=== PATIENT | male | born 1980 | race Caucasian/White ===

== ENCOUNTER 2019-10-20 08:44 | Day surgery (SDC) | payer OTHER ==
[2019-10-19 11:46] VITALS: BMI 24.4
[2019-10-20] MEDS ORDERED: Heparin 10,000 UNITS/1 ML VIAL ONE (08:49)
[2019-10-20] MEDS ORDERED: Lidocaine 1% (PF) 30 ML VIAL ONE (08:49)
[2019-10-20] MEDS ORDERED: Fentanyl 100 MCG/2 ML VIAL ONE ×3 (09:42→11:26)
[2019-10-20 09:44] LABS: #Basophils 0.1 thou/uL (0.0-0.2); #Eosinphils 0.1 thou/uL (0.0-0.7); #Lymphocytes 1.8 thou/uL (1.20-3.40); #Monocytes 0.7 thou/uL (0.11-0.59); #Neutrophils 5.5 thou/uL (1.40-6.50); %Basophils 0.6 % (0.0-1.0); %Eosinophils 1.8 % (0.0-10.0); %Lymphocytes 21.6 % (21.0-51.0); %Monocytes 8.7 % (0.0-10.0); %Neutrophils 67.3 % (42.0-75.0); Hemoglobin 15.3 g/dL (14.0-18.0); Mean Corpuscular HGB CONC 34.5 g/dL (32.0-36.0); Mean Corpuscular Hemoglobin 31.4 pg (27.0-31.0); Mean Corpuscular Volume 91.1 fL (78.0-98.0); Mean Platelet Volume 7.5 fL (7.4-10.4); Platelet Count 195 thou/uL (130-400); RBC Distribution Width 11.1 % (11.5-14.5); Red Blood Cell (RBC) Count 4.88 mill/uL (4.70-6.10); White Blood Cell (WBC) Count 8.2 thou/uL (4.8-10.8)
[2019-10-20 09:51] LABS: PTT 30.8 SEC (22.9-36.1); Prothrombin Time 13.4 SEC (12.0-14.7)
[2019-10-20 09:56] LABS: Anion Gap 10 mmol/L (10-20); BUN (Urea Nitrogen) 15 mg/dL (8.9-20.6); Calc. Creatinine Clearance 102 mL/min (70-130); Calcium 9.4 mg/dL (7.8-10.44); Carbon Dioxide 29 mmol/L (22-29); Chloride 104 mmol/L (98-107); Estimated GFR-MDRD 75; Glucose 95 mg/dL (70-105); Potassium 4.2 mmol/L (3.5-5.1); Sodium 139 mmol/L (136-145)
--- NOTE | 2019-10-20 10:45 | PRG ---
DATE OF SERVICE: 10/20/2019 Mr. Abdalla is a 39-year-old gentleman known to Dr. 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 There are plans to treat this surgically in the future. Dr. Soares asked that I meet with Mr. Abdalla to pursue cerebral angiography due to further define the vasculature around this malformation if present. I met with Mr. Abdalla this morning and discuss with him the procedure. I discussed also risks, benefits, and alternatives. He has provided consent for the procedure. Job ID: [id number]
[2019-10-20] MEDS ORDERED: Iopamidol 370 76% 50 ML VIAL FS ONE (13:16)
--- NOTE | 2019-11-01 22:14 | CCL ---
DATE OF PROCEDURE: 10/30/19 SURGEON: Agustin Osborn M.D. FELLMONGERY WORKER: None. INDICATION: Rule out AVM. DIAGNOSIS: History of AVM. PROCEDURE: Digital subtraction angiography. ANESTHESIA: Local. TECHNIQUE: The patient is brought to the angiogram suite and placed on the table in the supine position. Both gr oins were prepped and draped in the usual sterile fashion. 1% lidocaine was used to inject the right groin. A 5 [place] micropuncture set was used to gain access to the right common femoral artery. Using a Seldinger technique, the needle was removed and a 5 [place] sheath was placed. An 5 [place] Translimitt ic catheter was passed into the aortic arch where the right internal carotid artery was selectively c atheterized. An AP and lateral angiogram was then performed. All catheters were then removed. Hemosta sis was maintained throughout. Hemostasis was maintained with manual compression. The procedure came to an end without known complication. IMPRESSION: The patient underwent successful digital subtraction angiography. Angiography was performed of the [facility] internal carotid artery and reveals no evidence for AVM or other malformation.
== END 2019-10-20 13:55 | disposition home or self-care (01) ==
LOC: CCL 08:44
PROVIDERS: ATTEND Neurological Surgery
PROC: B30 Imaging, Upper Arteries, Plain Radiography (ICD-10-PCS; principal; 2019-10-20)
DX: Q28.2 Arteriovenous malformation of cerebral vessels (principal); Z79.82 Long term (current) use of aspirin; Z87.891 Personal history of nicotine dependence
CPT/HCPCS: 36217; 80048; 85025; 85610; 85730; J1644; J2001; J3010; Q9967

== ENCOUNTER 2020-01-31 07:11 | Outpatient (CLI) | payer OTHER ==
[2020-01-31 14:03] LABS: INR-International Normal Ratio 1.1; Prothrombin Time 14.2 sec (12.0-14.7)
[2020-01-31 14:16] LABS: Hemoglobin 15.2 g/dL (14.0-18.0); Mean Corpuscular HGB CONC 34.3 g/dL (32.0-36.0); Mean Corpuscular Hemoglobin 31.3 pg (27.0-31.0); Mean Corpuscular Volume 91.4 fL (78.0-98.0); Mean Platelet Volume 7.9 fL (7.4-10.4); Platelet Count 183 thou/uL (130-400); RBC Distribution Width 11.4 % (11.5-14.5); Red Blood Cell (RBC) Count 4.85 mill/uL (4.70-6.10); White Blood Cell (WBC) Count 4.9 thou/uL (4.8-10.8)
[2020-02-01 12:07] LABS: SARS-CoV-2 MS2 Positive; SARS-CoV-2 N Gene Positive; SARS-CoV-2 S Gene Positive; SARS-CoV-2 orf1ab Positive
== END 2020-01-31 07:12 | disposition home or self-care (01) ==
LOC: LABBT 07:11
PROVIDERS: ATTEND Neurological Surgery
DX: Z01.812 Encounter for preprocedural laboratory examination (principal); Z11.59 Encounter for screening for other viral diseases; Q04.9 Congenital malformation of brain, unspecified; D18.02 Hemangioma of intracranial structures
CPT/HCPCS: 85027; 85610; 85730; 87635; U0003

== ENCOUNTER 2020-01-31 09:33 | Outpatient (CLI) | payer OTHER ==
--- NOTE | 2020-01-31 11:23 | MRI ---
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 FINDINGS: There is an approximately 3.7 x 2.5 x 3.8 cm intra-axial mass centered in the right frontal dillon ra diata. Its inferior border is the superior edge of right basal ganglia. Its superior medial edge indents the anterior body of the right lateral ventricle and reaches the centrum semiovale the entire mass is surrounded by hemosiderin rim. The mass margins are very lobular. Internally, the mass consists of innumerable T2-hyperintense and T1 hyperintense small and tiny subunits by innu merable small septations with hemosiderin. Within the mass, there is enhancement of abnormal blood vessels representing a DVA (developmental venous anomaly, also known as venous angioma). No surroundi ng vasogenic edema is identified. In the right centrum semiovale, a distance of prostate 0.4 cm posterior to the posterior upper edge of the mass, there is a separate small 0.5 x 0.7 cm satellite l esion with similar signal characteristics. No enhancement is identified in this separate lesion. There is no mass effect or midline shift. No other foci of recent or remote hemorrhage in the suprate ntorial brain. Tiny punctate focus of minimal magnetic susceptibility artifact at midline posterior danilo may represent tiny calcification or perhaps minimal prior hemorrhage. No significant chronic isc hemic white matter changes. IMPRESSION: 1. 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 2. Associated developmental venous anomaly embedded within the giant cavernous malformation. 3. Very small satellite cavernous malformation a short distance posterior to the main mass.
== END 2020-01-31 09:34 | disposition home or self-care (01) ==
LOC: MRI 09:33
PROVIDERS: ATTEND Neurological Surgery
DX: D18.02 Hemangioma of intracranial structures (principal); Q28.3 Other malformations of cerebral vessels
CPT/HCPCS: 70553

== ENCOUNTER 2020-02-27 06:50 | Outpatient (CLI) | payer BC, OTHER ==
[2020-02-27 14:20] LABS: PTT 29.6 sec (22.9-36.1); Prothrombin Time 12.8 sec (12.0-14.7)
[2020-02-27 14:27] LABS: Hemoglobin 15.6 g/dL (14.0-18.0); Mean Corpuscular HGB CONC 34.1 g/dL (32.0-36.0); Mean Platelet Volume 7.8 fL (7.4-10.4); Platelet Count 246 thou/uL (130-400); RBC Distribution Width 11.8 % (11.5-14.5); Red Blood Cell (RBC) Count 5.04 mill/uL (4.70-6.10); White Blood Cell (WBC) Count 6.5 thou/uL (4.8-10.8)
[2020-02-28 13:33] LABS: SARS-CoV-2 MS2 Positive; SARS-CoV-2 N Gene Negative; SARS-CoV-2 S Gene Negative; SARS-CoV-2 orf1ab Negative
== END 2020-02-27 06:51 | disposition home or self-care (01) ==
LOC: LABBT 06:50
PROVIDERS: ATTEND Neurological Surgery
DX: Z01.812 Encounter for preprocedural laboratory examination (principal); Z11.59 Encounter for screening for other viral diseases; D18.02 Hemangioma of intracranial structures
CPT/HCPCS: 85027; 85610; 85730; 87635; U0003

== ENCOUNTER 2020-02-27 12:00 | Inpatient (IN) | payer BC, OTHER ==
--- NOTE | 2020-02-28 21:41 | HP ---
REASON FOR H AND P: Craniectomy and tumor resection on 03/01/2020, case # [id number]. CHIEF COMPLAINT: Migraines. HISTORY OF PRESENT ILLNESS: Mr. Abdalla is a 40-year-old male with a known cavernous malformation and a negative angiogram. MRI indicates that his right frontal lobe cavernoma has been enlarging. His headaches are still constant. He denies any new neurological deficits. REVIEW OF SYSTEMS: CONSTITUTIONAL: Denies fever, chills. EAR, NOSE AND THROAT: Denies change in vision or hearing. CARDIAC: Denies chest pain, shortness of breath, diaphoresis. PULMONARY: Denies shortness of breath, cough, hemoptysis. GI: Denies abdominal pain, nausea, vomiting, diarrhea, change in stool formation and consistency. : Denies trouble in urination, frequency of urination, bloody urine. SKIN: Denies skin rash bruising, bleeding, skin masses. MUSCULOSKELETAL: As per history of present illness. NEUROLOGIC: As per history of present illness. PSYCHOLOGIC: Denies anxiety, depression, or behavior changes. PAST MEDICAL HISTORY: Alcoholism/drug, cancer/tumor, headache/migraine. PAST SURGICAL HISTORY: ORIF right ankle in 2004, gamma knife 2006, appendectomy 2016. HOSPITALIZATIONS: Rhabdomyolysis in 2011, appendicitis 2016. FAMILY HISTORY: Father alive, hypertension, cancer. Mother . SOCIAL HISTORY: Tobacco use, former drug use. Former alcohol use. ALLERGIES: NO KNOWN DRUG ALLERGIES. PHYSICAL EXAMINATION: VITAL SIGNS: Height 5 feet 11 inches, weight 170 pounds. HEENT: Pupils are equal. Extraocular movements are intact. NECK: Soft, supple. No masses are noted. Range of motion is intact and nonpainful. NEUROLOGIC: Awake, alert, and oriented x3. Memory, attention, fund of knowledge normal. Cranial nerves grossly intact. EXTREMITIES: Upper extremity, he has good strength in his deltoids, biceps, triceps, wrist extension, finger extension, finger intrinsics. Sensation equal bilaterally. Lower extremities, he has good strength bilaterally in his iliopsoas, quadriceps, hamstrings, anterior tib, EHL, gastrocnemius. There is no area of dermatomal sensory loss. Toes are downgoing. GAIT AND STATION: Normal. IMAGING: MRI large cystic areas in inferior lateral margin and anterior medial margin of cavernoma. ASSESSMENT: Hemangioma of intracranial structures. PLAN: Right frontal craniotomy of cavernous malformation resection with BrainLAB protocol MRI. Preop labs CBC, PT/PTT, COVID 19 and anesthesia clearance. INFORMED CONSENT: We discussed the indications, risks, benefits, alternatives, and expected results from surgery. The risks discussed included, but were not limited to, infection, bleeding, CSF leak, brain damage, significant loss of neurological function, seizure, stroke, dependency for normal care, cardiopulmonary complications of anesthesia or . Long-term complications discussed included, but were not limited to reference and future surgeries. He understands the risks and is willing to proceed. Job ID: [id number] [facility]
[2020-03-01] MEDS ORDERED: Lidocaine 0.5%/Epinephrine 1:200,000 50 ml Vial ONE (06:11)
[2020-03-01] MEDS ORDERED: Bacitracin Zinc Ointment 30 gm TUBE ONE (06:11)
[2020-03-01] MEDS ORDERED: Thrombin 5000 UNITS/5 ML VIAL ONE ×2 (06:12→11:32)
[2020-03-01] MEDS ORDERED: Phenylephrine 10 MG/ML VIAL ONE (06:14)
[2020-03-01] MEDS ORDERED: Fentanyl 250 MCG/5 ML VIAL ONE (06:14)
[2020-03-01] MEDS ORDERED: niCARdipine 25 MG/10 ML VIAL ONE (06:14)
[2020-03-01] MEDS ORDERED: Famotidine/PF 20 mg/2ml Vial ONE (06:59)
[2020-03-01] MEDS ORDERED: Albumin 5% 500 ML ONE (09:02)
[2020-03-01] MEDS ORDERED: HYDROmorphone 2 MG/ML VIAL ONE (09:24)
[2020-03-01] MEDS ORDERED: Vecuronium 10 MG VIAL ONE ×2 (09:38→11:31)
[2020-03-01] MEDS ORDERED: Fentanyl 100 MCG/2 ML VIAL ONE ×2 (09:53→14:20)
[2020-03-01] MEDS ORDERED: PROPOFOL 200 MG/20 ML VIAL ONE (11:31)
[2020-03-01] MEDS ORDERED: Rocuronium Bromide 10 MG/ML (10ML VIAL) ONE (11:31)
[2020-03-01] MEDS ORDERED: Dexamethasone 20 MG/5 ML VIAL ONE (11:31)
[2020-03-01] MEDS ORDERED: Ondansetron PF 4 MG/2 ML Vial ONE (11:31)
[2020-03-01] MEDS ORDERED: Lidocaine 1% PF 5 ML VIAL ONE ×2 (11:31)
[2020-03-01] MEDS ORDERED: SUGAMMADEX SODIUM 200 MG/2 ML VIAL ONE (12:10)
[2020-03-01] MEDS ORDERED: hydrALAZINE 20 MG/ML VIAL SLOW IVP PRN ×2 (13:05→13:22)
[2020-03-01] MEDS ORDERED: Cepastat Lozenges 1 LOZ PO PRN (13:05)
[2020-03-01] MEDS ORDERED: Labetalol HCl 100 MG/20 ML VIAL SLOW IVP PRN ×2 (13:05→13:21)
[2020-03-01] MEDS ORDERED: Acetaminophen 325 MG TAB PO PRN (13:05)
[2020-03-01] MEDS ORDERED: Mag-Al 1200 mg/1200 mg/30 ML UDCUP PO PRN (13:05)
[2020-03-01] MEDS ORDERED: Promethazine 25 MG TAB PO PRN (13:05)
[2020-03-01] MEDS ORDERED: Acetaminophen/Codeine 30-300mg Tablet PO PRN (13:11)
[2020-03-01] MEDS ORDERED: Scopolamine 1.5 mg/72 hour Patch TD PRN (13:13)
[2020-03-01] MEDS ORDERED: Tamsulosin HCl 0.4 MG CAP PO PRN (13:13)
[2020-03-01] MEDS ORDERED: Promethazine HCl 25 MG/ML VIAL IM PRN (13:22)
[2020-03-01] MEDS ORDERED: HYDROmorphone 2 MG/ML VIAL SLOW IVP PRN (13:22)
[2020-03-01] MEDS ORDERED: Promethazine HCl 25 MG/ML VIAL SLOW IVP PRN (13:22)
[2020-03-01] MEDS ORDERED: Ondansetron HCl/PF 4 MG/2 ML Vial IVP PRN (13:22)
--- NOTE | 2020-03-01 14:22 | OP ---
DATE OF PROCEDURE: 03/01/2020 MANUFACTURING DEVELOPMENT ENGINEER: Ahsan Taylor PA-C PREOPERATIVE INDICATION: Prevent neurological deterioration. PREOPERATIVE DIAGNOSIS: Enlarging cavernous malformation, right hemisphere deep to the frontal lobe. POSTOPERATIVE DIAGNOSIS: Enlarging cavernous malformation, right hemisphere deep to the frontal lobe. PROCEDURE PERFORMED: BrainLAB assisted stereotactic right frontal craniotomy, resection of cavernous malformation. PREOPERATIVE MEDICATIONS: Ancef 2 g IV. DRAIN NUMBER: Zero. DRAIN TYPE: None. DESCRIPTION OF PROCEDURE: The patient was brought to the operating room. General endotracheal anesthesia was induced. The patient was positioned supine on the operating table with his right shoulder bumped. The head was immobilized with Licona pin overhead cleaner in the [place] attachment on the operating table. Using the preoperative BrainLAB protocol MRI scan and the BrainLAB surface matching techniques, we created 3 dimensional navigational space around the patient's head. We verified our registration with surface landmarks. We then planned a curvilinear incision starting at the root of the zygoma curving posteriorly behind the ear and then anteriorly towards the midline. Under our planned incision, we infused local anesthetic. The right side of the scalp was sterilely prepped and draped. We made our incision with a 10 blade knife. We controlled bleeding with bipolar and monopolar cautery. We folded the scalp flap forward leaving the temporalis muscle attached. Using the BrainLAB navigation wand, we planned out our trajectory to the cavernous malformation and we fashioned a craniotomy in a parasagittal fashion, where our trajectory would be in the center of the opening. We placed abby holes medially and one laterally. We removed dura from the undersurface of the skull with a [place] 3 dissector and then performed our craniotomy. The skull flap was taken out of the field and held on the back table. We irrigated with bacitracin irrigation. We opened the dura lateral to the midline and folded it towards the midline. We then brought the operating microscope into the field. Under microscopic magnification and using microsurgical techniques, we opened the superior frontal sulcus. Towards the depth of the sulcus, we then carried our dissection laterally towards the bottom of the middle frontal gyrus as this was the shortest distance to the cavernous malformation based on navigation. Once we encountered abnormal tissue, then we lined our trajectory with Surgicel and placed the self-retaining retractors with a Lu Halo system on the middle frontal gyrus. We developed the plane superior medial, lateral, anterior and posterior to the lesion and confirmed our dissection plane each time with the navigation system. We reduced the size of the lesion. Multiple popcorn-like cavities were present. When entered, this had some stagnant venous blood in it. We reduced the size of the lesions, so that we could work at its depth. Here, the lesion approached the frontal horn of the lateral ventricle. We entered the ventricular cavity superiorly. Laterally, the ependyma was just below the lesion. We the two successfully. A small opening in the superior portion of the ventricle was necessary with the lateral portion of the ventricle remained intact. We then dissected deep to the lesion. Here, multiple cystic structures were present and there were carefully emptied dissected around them extremely carefully and removed them. At the completion of our resection, 95% of the lesion was removed as a single unit and the remaining few sections that were deep were removed carefully and individually. There was a small amount of bleeding anterior at the depth of the resection cavity and this was controlled with a small pledget of Gelfoam. The remainder of the cavity had excellent hemostasis. We irrigated with bacitracin irrigation. We lined the resection cavity with Surgicel and reinforce the ventricular opening with another layer of Surgicel ensuring that it was large enough that would not enter the ventricular system. We then reapproximated the dura in an interrupted fashion. We irrigated once again with bacitracin irrigation. We left Surgicel over the dura. The skull flap was brought into the field and 3 abby hole covers were attached to the flap. These were used to fix the bone placement that was returned to the patient's pilot station skull. We removed the operating microscope and then we closed the scalp in anatomical layers. We applied sterile dressings. This was a clean case, no contamination. Job ID: [id number] [facility]
[2020-03-01] MEDS: Fentanyl 100 MCG/2 ML VIAL SLOW IVP PRN ×2 (15:45→21:49)
[2020-03-01] MEDS: Ondansetron PF 4 MG/2 ML Vial IVP PRN ×2 (15:45→21:49)
[2020-03-01] MEDS: CEFAZOLIN 2 GM in Premix Bag 1 BAG IVPB SCH ×2 (15:46→21:21)
[2020-03-01] MEDS: Sodium Chloride 0.9% 1,000 ML IV SCH (16:10)
[2020-03-01 16:26] VITALS: BMI 26.7
[2020-03-01] MEDS: Morphine 2 MG/ML VIAL SLOW IVP PRN ×3 (16:51→20:10)
[2020-03-01] MEDS: Promethazine HCl 25 MG/ML VIAL SLOW IVP PRN (18:40)
--- NOTE | 2020-03-01 18:49 | CON ---
DATE OF CONSULTATION: HISTORY OF PRESENT ILLNESS: Alcides Abdalla is a 40-year-old gentleman, who was admitted to the hospital with elective craniotomy and resection of a large right-sided cavernous hemangioma or at least a cavernous malformation. He had a CT angiogram several months ago, which did not show any AVM. He is postop, consulted by Neurosurgery since he is going to the ICU. There was some concern of some weakness on his left side. PAST MEDICAL HISTORY: Otherwise, pertinent for previous migraine headaches. PAST SURGICAL HISTORY: Previous surgeries, ankle surgery and hernia surgery. SOCIAL HISTORY: Previous history of alcohol and tobacco abuse. Substance abuse per history. ALLERGIES: NONE. HOME MEDICINE: 1. Elavil 50. 2. Tylenol. REVIEW OF SYSTEMS: Unremarkable. PHYSICAL EXAMINATION: VITAL SIGNS: His saturations are . Blood pressure on the A-line 130/80, pulse , and respirations 18. CHEST: No wheezing. No crackles. CARDIAC: Normal S1 and S2. No gallops. ABDOMEN: No masses. NEUROLOGIC: Basically, he is awake, was somewhat lethargic. LABORATORY DATA: His white count 6000 and H and H are stable. Chemistry profile is normal. ASSESSMENT AND PLAN: Status post craniotomy as outlined by Neurosurgery, Dr. Soares. We will observe the patient in the ICU. Supportive care and PT. He was started on empiric Keppra per Neurosurgery and antibiotics. Consultation note, 70 minutes, 50% direct patient care. Job ID: [id number]
[2020-03-01] MEDS: levETIRAcetam 500 MG TAB PO SCH ×2 (20:10→20:53)
[2020-03-01] MEDS: Amitriptyline HCl 25 MG TAB PO SCH (20:10)
[2020-03-01] MEDS ORDERED: Phenylephrine 10 MG in Sodium Chloride 0.9% 250 ML 250 ML IVPB PRN (21:05)
[2020-03-01] MEDS ORDERED: Dexamethasone 2 MG in Sodium Chloride 0.9% 50 ML IVPB SCH (23:59)
[2020-03-02] MEDS: Fentanyl 100 MCG/2 ML VIAL SLOW IVP PRN ×7 (00:04→23:02)
[2020-03-02] MEDS: Dexamethasone 4 mg/ml Vial SLOW IVP SCH ×5 (00:05→23:01)
[2020-03-02] MEDS: Sodium Chloride 0.9% 1,000 ML IV SCH ×3 (00:05→22:03)
[2020-03-02] MEDS: Morphine 2 MG/ML VIAL SLOW IVP PRN ×7 (01:01→21:56)
[2020-03-02] MEDS: Promethazine HCl 25 MG/ML VIAL SLOW IVP PRN ×3 (01:01→20:03)
[2020-03-02] MEDS: Ondansetron PF 4 MG/2 ML Vial IVP PRN ×3 (04:23→22:44)
[2020-03-02] MEDS: levETIRAcetam 500 MG TAB PO SCH ×2 (07:33→20:04)
[2020-03-02] MEDS: Pantoprazole 40 MG VIAL IVP SCH ×2 (07:33→20:03)
[2020-03-02] MEDS ORDERED: HYDROcodone/Acetaminophen 7.5/325 mg Tablet PO PRN (08:34)
[2020-03-02] MEDS: HYDROcodone/Acetaminophen 7.5/325 mg Tablet PO PRN ×4 (08:51→20:56)
[2020-03-02] MEDS ORDERED: Prevnar 13-Val Conj/PF 0.5 ML SYRINGE IM ONE (09:00)
[2020-03-02 09:32] LABS: Bilirubin Negative (Negative); Blood, Urine Negative (Negative); Clarity Clear (Clear); Glucose, Urine (Dipstick) Normal (Negative); Ketone, Urine Negative (Negative); Leukocyte 75 Leu/uL (Negative); Nitrite Negative (Negative); Protein, Urine (Dipstick) Negative (Neg-Trace); Specific Gravity, Urine 1.005 (1.002-1.036); Urobilinogen Normal mg/dL (Less than 2); pH, Urine 6.5 (5.0-9.0)
--- NOTE | 2020-03-02 09:37 | PRG ---
DATE OF SERVICE: 03/02/2020 SUBJECTIVE: This morning, the patient is awake, alert, responsive, having significant pain, but no difficulty breathing. OBJECTIVE: VITAL SIGNS: Pulse 94, respiratory rate 15, blood pressure 127/51, saturations 100%. CHEST: No wheezing or crackles. CARDIAC: Normal S1, S2. No gallops. ASSESSMENT: Status post craniotomy, pain otherwise is stable. We will continue supportive care. Pain relief. Job ID: [id number]
[2020-03-02 09:55] LABS: #Lymphocytes 0.9 thou/uL (1.20-3.40); #Monocytes 1.4 thou/uL (0.11-0.59); #Neutrophils 13.9 thou/uL (1.40-6.50); %Eosinophils 0.1 % (0.0-10.0); %Lymphocytes 5.4 % (21.0-51.0); %Monocytes 8.5 % (0.0-10.0); Hemoglobin 14.1 g/dL (14.0-18.0); Mean Corpuscular HGB CONC 33.9 g/dL (32.0-36.0); Mean Corpuscular Hemoglobin 30.7 pg (27.0-31.0); Mean Corpuscular Volume 90.7 fL (78.0-98.0); Mean Platelet Volume 7.9 fL (7.4-10.4); Platelet Count 174 thou/uL (130-400); RBC Distribution Width 11.9 % (11.5-14.5); Red Blood Cell (RBC) Count 4.58 mill/uL (4.70-6.10); White Blood Cell (WBC) Count 16.2 thou/uL (4.8-10.8)
[2020-03-02 10:19] LABS: Anion Gap 13 mmol/L (10-20); BUN (Urea Nitrogen) 7 mg/dL (8.9-20.6); Calc. Creatinine Clearance 127 mL/min (70-130); Carbon Dioxide 25 mmol/L (22-29); Chloride 104 mmol/L (98-107); Estimated GFR-MDRD Greater than 90; Glucose 135 mg/dL (70-105); Potassium 3.9 mmol/L (3.5-5.1); Sodium 138 mmol/L (136-145)
--- NOTE | 2020-03-02 13:19 | PRG ---
DATE OF SERVICE: 03/02/2020 SUBJECTIVE: Mr. Abdalla is on postoperative day #1, following a right frontal cavernoma resection with Dr. Soares. Reportedly overnight, he has had significant pain and nausea control issues. We changed the medications this morning. Decadron was added overnight. He has nausea is a little bit better this morning, but his pain is still quite severe. Neurologically he is interactive and awake, but in obvious pain. He has excellent motor function in the right upper and bilateral lower extremities, but his left hand is quite weak, particularly when extending all of his fingers and opening his hand. Urine output has been high. We will check UA. We will also check base met and CBC just to ensure that there is no other metabolic concern that may be developing to add to his troubles. Otherwise we will continue to just follow along and manage his pain as best we can. Job ID: [id number]
[2020-03-02] MEDS: Amitriptyline HCl 25 MG TAB PO SCH (20:04)
[2020-03-02] MEDS: Docusate 100 MG CAP PO PRN (20:22)
[2020-03-03] MEDS: HYDROcodone/Acetaminophen 7.5/325 mg Tablet PO PRN ×6 (00:31→22:59)
[2020-03-03] MEDS: Ondansetron PF 4 MG/2 ML Vial IVP PRN ×2 (02:00→06:37)
[2020-03-03] MEDS: Fentanyl 100 MCG/2 ML VIAL SLOW IVP PRN ×3 (02:00→09:49)
[2020-03-03] MEDS: Promethazine HCl 25 MG/ML VIAL SLOW IVP PRN (03:28)
[2020-03-03] MEDS: Dexamethasone 4 mg/ml Vial SLOW IVP SCH (05:33)
[2020-03-03] MEDS: Morphine 2 MG/ML VIAL SLOW IVP PRN ×8 (07:40→23:56)
[2020-03-03] MEDS: levETIRAcetam 500 MG TAB PO SCH ×2 (08:48→20:06)
[2020-03-03] MEDS: Pantoprazole 40 MG VIAL IVP SCH ×2 (08:49→20:07)
[2020-03-03] MEDS: Sodium Chloride 0.9% 1,000 ML IV SCH ×2 (09:37→17:21)
--- NOTE | 2020-03-03 09:55 | PRG ---
DATE OF SERVICE: 03/03/2020 SUBJECTIVE: This morning, he is still having some headache and pain, but otherwise no shortness of breath. OBJECTIVE: VITAL SIGNS: Heart rate is 90, blood pressure 110/86, sats 93% on room air, and respiratory rate 18. CHEST: No wheezing or crackles. CARDIAC: Normal S1. No gallops. ABDOMEN: Soft. LABORATORY DATA: White count 16,000, is unremarkable. IMPRESSION: Status post craniotomy for cavernous tumor pain. PLAN: Disposition as per Neurosurgery. Pulmonary rose, we will follow while in the ICU. Job ID: [id number]
[2020-03-03] MEDS: Docusate 100 MG CAP PO PRN (14:22)
[2020-03-03] MEDS ORDERED: Bisacodyl 5 MG TAB PO PRN (17:37)
[2020-03-03] MEDS ORDERED: Bisacodyl 5 MG TAB PO SCH (17:45)
--- NOTE | 2020-03-03 18:57 | PRG ---
DATE OF SERVICE: 03/02/2020 Mr. Abdalla is one day status post resection of cavernous angioma. He was admitted to the ICU overnight. I reviewed the note as dictated by Mohit Barron and agree with his management plan. Mr. Abdalla has been complaining predominantly with headache and nausea. Our plan is to make adjustments in his medications. He has also had brisk urinary output. We will keep an eye on his urine output as well as his electrolytes. He will remain in the ICU overnight. We will re-evaluate tomorrow. Job ID: [id number] [facility]
[2020-03-03] MEDS: Amitriptyline HCl 25 MG TAB PO SCH (20:06)
[2020-03-03] MEDS: diphenhydrAMINE 50 MG CAP PO PRN (21:07)
[2020-03-04] MEDS: HYDROcodone/Acetaminophen 7.5/325 mg Tablet PO PRN ×5 (02:55→20:09)
[2020-03-04] MEDS: diphenhydrAMINE 50 MG CAP PO PRN ×2 (03:05→10:51)
[2020-03-04] MEDS: Morphine 2 MG/ML VIAL SLOW IVP PRN ×2 (05:15→06:22)
[2020-03-04] MEDS: Sodium Chloride 0.9% 1,000 ML IV SCH ×2 (06:33→08:59)
--- NOTE | 2020-03-04 06:55 | PRG ---
DATE OF SERVICE: date of dictation I saw Mr. Abdalla in the ICU this morning. He is 3 days out from right frontal craniotomy for resection of a large cavernous malformation. He had some left hemibody weakness following surgery, most of which is improved quite dramatically. He is left with some facial weakness this morning. I do not see any fevers recorded over the weekend. The highest temperature noted is 99.1 degrees Fahrenheit. Blood pressures have been in a reasonable range of 120 to 140s. The facial weakness is in the upper motor neuron pattern. There is some activation of the cheek muscles, but it is minimal on the left. There is good eye closure and forehead movements. Hand weakness over the weekend is largely resolved. There is great finger extension, which was missing previously that has returned. Today, we will move Mr. Abdalla out of the ICU, we will remove the [place] catheter, ensure he can get in and out of bed on his own and start some more aggressive physical and occupational therapy. We will decide on discharge planning tomorrow morning. Job ID: [id number] [facility]
[2020-03-04] MEDS: Pantoprazole 40 MG VIAL IVP SCH ×2 (07:59→20:10)
[2020-03-04] MEDS: levETIRAcetam 500 MG TAB PO SCH ×2 (07:59→20:10)
[2020-03-04] MEDS: Fentanyl 100 MCG/2 ML VIAL SLOW IVP PRN ×3 (08:59→21:23)
[2020-03-04] MEDS: Amitriptyline HCl 25 MG TAB PO SCH (20:10)
[2020-03-05] MEDS: HYDROcodone/Acetaminophen 7.5/325 mg Tablet PO PRN ×5 (02:58→22:04)
[2020-03-05] MEDS: Sodium Chloride 0.9% 1,000 ML IV SCH (05:19)
[2020-03-05] MEDS: Morphine 2 MG/ML VIAL SLOW IVP PRN (05:55)
--- NOTE | 2020-03-05 07:23 | PRG ---
DATE OF SERVICE: 03/05/2020 I saw Mr. Abdalla on rounds this morning. He is 4 days out from craniotomy for resection of a large cavernous malformation in the right hemisphere. Family members expressed some concern about his inability to read and text, communicate, although his speech has been normal. Mr. Abdalla got up yesterday with physical therapy and walked about 150 feet in the adler. He had had a gait belt on and needed a hand on the gait belt for safety. He is feeling more confident as days go by. I do not see any fevers recorded among the electronic vital signs. The highest temperature I see is 99.3. Other vital signs have been stable with systolic blood pressure between the 110s and 140s. On examination, Mr. Abdalla has upper motor neuron facial weakness on the left. He has some arm weakness that has recovered nicely and is near normal. He takes a sip of liquids at bedside without any aspiration. The plan for Mr. Abdalla is to have him evaluated for inpatient rehabilitation. This can be done closer to home in the [facility] where he lives, so he can be visited by family members. If he does not qualify for inpatient rehab, then home health, physical therapy and occupational therapy may be suggested. Any reading and texting issues are likely related to inattention to the left body and visual space. As the swelling dissipates from the surgical intervention, we are all hopeful his personality and attention return to normal. He could even get some improvement in his face, although this is slightly more likely to be permanent. Job ID: [id number] [facility]
[2020-03-05] MEDS: levETIRAcetam 500 MG TAB PO SCH ×2 (08:45→20:11)
[2020-03-05] MEDS: Pantoprazole 40 MG VIAL IVP SCH ×2 (08:45→20:11)
[2020-03-05] MEDS: Fentanyl 100 MCG/2 ML VIAL SLOW IVP PRN ×3 (10:18→20:11)
[2020-03-05] MEDS: Amitriptyline HCl 25 MG TAB PO SCH (20:10)
[2020-03-05] MEDS: Docusate 100 MG CAP PO PRN (20:10)
[2020-03-06] MEDS: HYDROcodone/Acetaminophen 7.5/325 mg Tablet PO PRN ×4 (03:43→20:51)
[2020-03-06] MEDS: Docusate 100 MG CAP PO PRN (08:45)
[2020-03-06] MEDS: Pantoprazole 40 MG VIAL IVP SCH ×2 (08:45→21:16)
[2020-03-06] MEDS: levETIRAcetam 500 MG TAB PO SCH ×2 (08:45→20:51)
[2020-03-06] MEDS ORDERED: traMADol HCl 50 MG TAB PO PRN (11:22)
[2020-03-06] MEDS ORDERED: Acetaminophen/Codeine 30-300mg Tablet PO PRN (11:22)
[2020-03-06 16:07] VITALS: BP 118/84; TEMP 98.8
[2020-03-06 19:19] LABS: SARS-CoV-2 MS2 Positive; SARS-CoV-2 N Gene Positive; SARS-CoV-2 S Gene Positive; SARS-CoV-2 orf1ab Negative
[2020-03-06] MEDS: Amitriptyline HCl 25 MG TAB PO SCH (20:51)
--- NOTE | 2020-03-07 07:58 | DIS ---
DATE OF ADMISSION: 03/01/2020 DATE OF DISCHARGE: 03/06/2020 HISTORY OF PRESENT ILLNESS: Mr. Abdalla is a 40-year-old gentleman with a large right cavernous malformation. It has been growing and giving him constant headaches. On March 01, he underwent a right craniectomy and a cavernous malformation resection. Following the surgery, he was transitioned to the ICU floor where his pain has been well controlled with p.o.medications. He has been tolerating a regular diet and voiding appropriately. He was transferred to the [facility] floor on Wednesday. He is otherwise doing well, ambulating with the assistance of physical therapy. He is anticipating that he will be going to inpatient rehab today pending his rapid COVID-19 result. PHYSICAL EXAMINATION: He is awake and alert, in no acute distress. He has free active range of motion of all his extremities. His incision is clean, dry, and intact. He still experienced some upper motor neuron facial weakness on the left side. He continues to have some arm weakness that each day is getting stronger and stronger. He is eating and drinking appropriately without any issues of aspiration. The patient has been approved by insurance and should be discharged to inpatient rehab soon. I have discussed home care precautions. CONDITION ON DISCHARGE: The patient had no emergencies. Condition was stable for discharge. MEDICATIONS: Home going medications were reviewed. FOLLOWUP: Followup arrangements made by our host coordinator in the clinic and called to the patient. ACTIVITIES: Restrictions were reviewed in person. Wound care showers are acceptable. The patient should pat the incision dry, but not submerge it under the surface of a body of water for 2 months. Job ID: [id number] [facility]
== END 2020-03-06 21:05 | disposition home or self-care (01) | DRG 25 ==
LOC: SURG A 03-01 06:02 → CCU 03-01 15:24 → SURG A 03-04 07:39
PROVIDERS: ADMIT Neurological Surgery; ATTEND Neurological Surgery
PROC: 00B60ZZ Excision of Cerebral Ventricle, Open Approach (ICD-10-PCS; principal; 2020-03-01)
PROC: 2W30XYZ Immobilization of Head using Other Device (ICD-10-PCS; 2020-03-01)
DX: D18.02 Hemangioma of intracranial structures (principal); U07.1 COVID-19; Z90.49 Acquired absence of other specified parts of digestive tract; Z87.891 Personal history of nicotine dependence; G43.909 Migraine, unspecified, not intractable, without status migrainosus; Z01.812 Encounter for preprocedural laboratory examination; Z11.59 Encounter for screening for other viral diseases
CPT/HCPCS: 36415; 80048; 81003; 85025; 85027; 85610; 85730; 87635; 88307; 88313; 88342; C1713; C9113; J0690; J1100; J1170; J1953; J2001; J2270; J2370; J2405; J2550; J2704; J3010; J3490; P9045; Q0163; S0028; U0003